=== PATIENT | male | born 1955 | race Caucasian/White ===

== ENCOUNTER → 2019-01-05 | Outpatient (CLI) | payer BC ==
--- NOTE | 2019-01-05 13:35 | PCVCIMAG ---
APPROVED REPORT Study performed: 01/05/2019 12:18:23 Exam: Stress Echocardiogram Indication: Dyspnea on exertion Patient Location: Echo lab Stress Nurse: Siria Garcia RN Room #: 2 Status: routine Ht: 6 ft 2 in HR: 78 bpm BP: 136/88 mmHg Rhythm: NSR Medical History Medical History: HTN, No history of CAD Previous Cardiac Procedures: none Pretest Chest Pain Characteristics: No chest pain Exercise History: Physically active Procedure The patient underwent an Exercise Stress Test using the Cedrick Protocol. Blood pressure, heart rate, and EKG were monitored. An Echocardiogram was performed by cctv technician in four stages in quad fashion. At peak stress, four selected images were obtained and placed side by side with resting images for comparison. Stress Test Details Stress Test: Exercise stress testing was performed using a Cedrick protocol. HR Resting HR: 78 bpmMax Heart Rate (APMHR): 156 bpm Max HR Achieved: 164 bpmTarget HR (85% APMHR): 132 bpm % of APMHR: 105 Recovery HR: 90 bpm HR response to stress: Normal HR response to stress BP Resting BP: 136/88 mmHg Max BP: 184/80 mmHg Recovery BP: 142/74 mmHg BP response to stress: Normal blood pressure response to stress. ECG Resting ECG: Sinus Rhythm Stress ECG: Sinus Rhythm ST Change: Non-ischemic Maximum ST Deviation: -0.15 mm Arrhythmia: rare pac,pvc Recovery ECG: Sinus Rhythm Recovery ST Change: Non-ischemic Recovery ST Deviation: 0.25 mm Recovery Arrhythmia: None Clinical Reason for Termination: Maximal effort Stress Symptoms: fatigue Exercise duration: 11 min 35 sec Highest Stage Achieved: Stage 4: 4.2 mph at 16% grade. Exercise capacity: 13.4 METs Overall Exercise Capacity for Age: Good Scale: Active Angina Score: None No complications. Stress ECG Conclusion The patient exercised according to the CEDRICK protocol for 11:35 mins; achieving a work level of 13.4 METS. The resting heart rate of 78 bpm jaimie to a maximum heart rate of 164 bpm. This value represent 105% of the maximal, age-predicted heart rate. The resting blood pressure of 136/88 mmHg, jaimie to a maximum blood pressure of 184/80 mmHg. The exercise test was stopped due to fatigue. Newman Treadmill Score is 11.8 which is Low risk. Pre-Stress Echo The resting Echocardiogram showed normal left ventricular contractility with an estimated Ejection Fraction of about 55-60%. Normal wall motion in all segments on baseline images. Post-Stress Echo The stress Echocardiogram showed normal left ventricular contractility with an estimated Ejection Fraction of about 65-70%. Normal augmentation of wall motion in all segments on post stress images. Clinical No clinical or ECG evidence for ischemia. Conclusion Clinical Response: Non-ischemic Exercise Capacity: Superior Stress ECG Response: Non-ischemic Stress Echo Images: Non-ischemic No clinical, EKG or echocardiographic evidence for ischemia. No echocardiographic evidence for exercise induced ischemia. Normal stress echocardiogram with maximal exercise stress. Normal color doppler. No regurgitation or stenosis present on pulmonic, mitral, tricuspid or aortic valves. <Conclusion> No clinical, EKG or echocardiographic evidence for ischemia. No echocardiographic evidence for exercise induced ischemia. Normal stress echocardiogram with maximal exercise stress. Normal color doppler. No regurgitation or stenosis present on pulmonic, mitral, tricuspid or aortic valves.
--- NOTE | 2019-01-05 14:10 | PCVCIMAG ---
EXAM: AORTOILIAC DUPLEX INDICATION: Palpable abdominal fullness. FINDINGS: AORTA: Suprarenal aorta measures maximum diameter of 2.9 cm. There is not a fusiform infrarenal aortic aneurysm. The infrarenal aorta measures maximum diameter of 2.3 cm. No aortic stenosis. RIGHT COMMON ILIAC ARTERY: Maximum diameter is 1.6 cm. No significant stenosis. RIGHT EXTERNAL ILIAC ARTERY: No significant stenosis. LEFT COMMON ILIAC ARTERY: Maximum diameter is 1.6 cm. No significant stenosis. LEFT EXTERNAL ILIAC ARTERY: No significant stenosis. IMPRESSION: No abdominal aortic aneurysm. No aortoiliac stenosis seen. LOC:[place] [id number]
== END | disposition home or self-care (01) ==
LOC: PCVCIMAG 12:11
PROVIDERS: ATTEND Internal Medicine Cardiovascular Disease
DX: R09.89 Other specified symptoms and signs involving the circulatory and respiratory systems (principal)
CPT/HCPCS: 93325; 93351; 93978